=== PATIENT | female | born 1945 | race Caucasian/White ===

== ENCOUNTER 2020-10-12 04:07 | Emergency (ER) | payer MEDICARE, MEDICAID ==
[~2020-10-12] VITALS: Ht 160 cm; Wt 75.0 kg
[2020-10-12 04:10] VITALS: BP 115/65
[2020-10-12] MEDS ORDERED: DIPHENHYDRAMINE 25 MG CAPSULE ONE (04:32)
[2020-10-12] MEDS ORDERED: DIPHENHYDRAMINE 25 MG CAPSULE PO ONE (05:00)
== END 2020-10-12 04:43 | disposition home or self-care (01) ==
LOC: ED 04:41
DX: L50.0 Allergic urticaria (principal); F17.200 Nicotine dependence, unspecified, uncomplicated
CPT/HCPCS: 99282; Q0163